=== PATIENT | female | born 1980 | race Two or more races ===

== ENCOUNTER 2023-03-14 18:30 | Outpatient (CLI) | payer MEDICAID ==
--- NOTE | 2023-03-15 00:45 | Ultrasound Report ---
PROCEDURE: Pelvic w/Transvaginal INDICATIONS: DYSFUNCTIONAL, PELVIC PAIN TECHNIQUE: Real-time scanning was performed of the pelvic organs, with image documentation. Additional endovagi nal scanning was necessary due to incomplete visualization of the adnexal and endometrial structures by transabdominal scanning. COMPARISON: None. FINDINGS: Uterus: Uterus is anteverted and normal in size at 9.1 x 5.2 x 5.8 cm. The myometrium is heterogene ous. The endometrium measures 11 mm in combined thickness. No abnormal vascularity can be seen maricruz g the endometrial stripe. Ovaries: The right ovary measures 3.7 x 4 x 5.1 cm, with a calculated ovarian volume of 39.7 cc. Th ere is a complex right ovarian cyst seen that measures up to 3.6 cm. A right paraovarian cyst is seen that measures up to 1 cm. The left ovary measures 3.6 x 1.8 x 3.1 cm, with a calculated ovarian volume of 10.7 cc. A left para ovarian cyst is seen and measures up to 1 cm. Less than 12 follicles can be seen in each ovary. No adnexal masses are seen. No cystic lesions patricio suring greater than 3 cm. Other: A mild to moderate amount of free pelvic fluid can be seen. IMPRESSION: There is a 3.6 cm right ovarian complex cyst seen. If clinically appropriate, please consider a shor t-term follow-up ultrasound in 6 weeks to ensure resolution/improvement. There is a mild to moderate amount of free pelvic fluid is seen. Note made of bilateral paraovarian cysts that measure up to 1 cm. Reviewed by: Fausto Scott MD on 03/14/2023 11:43 PM JE Approved by: Fausto Scott MD on 03/14/2023 11:43 PM JE Station ID: [id number]
== END 2023-03-14 18:31 | disposition home or self-care (01) ==
LOC: DI 18:30
PROVIDERS: ATTEND Family Medicine
DX: N83.291 Other ovarian cyst, right side (principal); N83.201 Unspecified ovarian cyst, right side